=== PATIENT | male | born 1990 | race Caucasian/White ===

== ENCOUNTER → 2017-01-16 | Outpatient (CLI) | payer OTHER | LOC: FIMAGING 13:54 | PROVIDERS: ATTEND Family Medicine | DX: R07.81 Pleurodynia (principal); V19.88XA Pedal cyclist (driver) (passenger) injured in other specified transport accidents, initial encounter ==

== ENCOUNTER 2017-04-14 09:02 | Emergency (ER) | payer OTHER ==
[2017-04-14 09:08] VITALS: RESP 16; TEMP 97.7
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
[2017-04-14] MEDS ORDERED: TDAP ADULT 0.5 ML INJ (BOOSTRIX) IM ONE (10:31)
[2017-04-14 12:03] VITALS: BP 113/77; PULSE 78; O2SAT 97
== END 2017-04-14 12:02 | disposition home or self-care (01) ==
PROC: 0HQ1XZZ Repair Face Skin, External Approach (ICD-10-PCS; principal; 2017-04-14)
DX: S01.81XA Laceration without foreign body of other part of head, initial encounter (principal); S16.1XXA Strain of muscle, fascia and tendon at neck level, initial encounter; Z23 Encounter for immunization; Z87.891 Personal history of nicotine dependence; V18.0XXA Pedal cycle driver injured in noncollision transport accident in nontraffic accident, initial encounter

== ENCOUNTER → 2018-07-12 | Outpatient (CLI) | payer OTHER | LOC: BMCIMAGING 12:08 | PROVIDERS: ATTEND Family Medicine | DX: M79.89 Other specified soft tissue disorders (principal) ==